=== PATIENT | female | born 1970 | race African-American/Black ===

== ENCOUNTER 2018-09-14 19:28 | Emergency (ER) | payer OTHER | END 2018-09-15 02:49 | disposition home or self-care (01) | LOC: JER 09-15 02:49 | PROC: 3E0337Z Introduction of Electrolytic and Water Balance Substance into Peripheral Vein, Percutaneous Approach (ICD-10-PCS; principal; 2018-09-14) | PROC: 3E03329 Introduction of Other Anti-infective into Peripheral Vein, Percutaneous Approach (ICD-10-PCS; 2018-09-14) | PROC: 3E033NZ Introduction of Analgesics, Hypnotics, Sedatives into Peripheral Vein, Percutaneous Approach (ICD-10-PCS; 2018-09-14) | PROC: 3E0333Z Introduction of Anti-inflammatory into Peripheral Vein, Percutaneous Approach (ICD-10-PCS; 2018-09-14) | DX: N39.0 Urinary tract infection, site not specified (principal); N83.202 Unspecified ovarian cyst, left side; D64.9 Anemia, unspecified ==

== ENCOUNTER 2020-10-22 18:47 | Emergency (ER) | payer OTHER ==
[2020-10-22 19:00] VITALS: BP 150/89; PULSE 80; TEMP 98.4; BMI 51.7
[2020-10-22] MEDS ORDERED: diazePAM 2 MG TABLET PO ONE (19:55)
[2020-10-22] MEDS ORDERED: KETOROLAC TROMETHAMINE 60 MG/2 ML VIAL IM ONE (19:55)
[2020-10-22] MEDS ORDERED: DEXAMETHASONE LIQUID 0.5 MG/5 ML PO ONE (19:55)
[2020-10-22] MEDS ORDERED: LIDOCAINE 5% TOPICAL PATCH TP ONE (19:55)
[2020-10-22] MEDS ORDERED: LIDOCAINE 5% TOPICAL PATCH ONE (19:59)
[2020-10-22] MEDS ORDERED: DEXAMETHASONE SOD PHOSPHATE 10 MG/1 ML VIAL ONE (20:00)
[2020-10-22] MEDS ORDERED: diazePAM 2 MG TABLET ONE (20:00)
[2020-10-22] MEDS ORDERED: KETOROLAC TROMETHAMINE 30 MG/1 ML VIAL ONE (20:00)
== END 2020-10-22 22:34 | disposition home or self-care (01) ==
LOC: JERFT 18:47
PROC: 3E0233Z Introduction of Anti-inflammatory into Muscle, Percutaneous Approach (ICD-10-PCS; principal; 2020-10-22)
DX: M54.5 Low back pain (principal)
CPT/HCPCS: 99284-25

== ENCOUNTER 2020-11-01 16:28 | Observation (INO) | payer OTHER ==
[2020-11-01] MEDS ORDERED: KETOROLAC TROMETHAMINE 30 MG/1 ML VIAL IM ONE (17:34)
[2020-11-01] MEDS ORDERED: diazePAM 2 MG TABLET PO ONE (17:35)
[2020-11-01] MEDS ORDERED: LIDOCAINE 5% TOPICAL PATCH TP ONE (17:35)
[2020-11-01] MEDS ORDERED: KETOROLAC TROMETHAMINE 30 MG/1 ML VIAL ONE (17:38)
[2020-11-01] MEDS ORDERED: diazePAM 2 MG TABLET ONE (17:38)
[2020-11-01] MEDS ORDERED: LIDOCAINE 5% TOPICAL PATCH ONE (17:45)
[2020-11-01] MEDS ORDERED: oxyCODONE HCL 5 MG TABLET PO ONE (18:31)
[2020-11-01] MEDS ORDERED: oxyCODONE HCL 5 MG TABLET ONE (18:35)
[2020-11-01 19:06] LABS: BASO % 0.9 % (0-2.0); EOS % 1.3 % (0-4.5); HEMATOCRIT 40.7 % (32.4-45.2); HEMOGLOBIN 13.3 GM/dL (10.7-15.3); LYMPH % 24.8 % (8-40); MCHC 32.8 g/dl (32.0-36.0); MEAN CELL VOLUME 88.5 fl (80-96); MEAN PLT VOLUME 10.7 fl (7.5-11.1); MONO % 7.9 % (3.8-10.2); NEUT % 65.1 % (42.8-82.8); PLATELET COUNT 141 10^3/uL (134-434); WHITE BLOOD COUNT 11.3 K/mm3 (4.0-10.0)
[2020-11-01 19:26] LABS: CALCIUM 8.5 mg/dL (8.5-10.1)
[2020-11-01 19:27] LABS: ALBUMIN 3.1 g/dl (3.4-5.0)
[2020-11-01 19:30] LABS: CREATININE 0.9 mg/dL (0.55-1.3)
[2020-11-01 19:31] LABS: BILIRUBIN,TOTAL 0.2 mg/dL (0.2-1)
[2020-11-01 19:32] LABS: TOT PROT 6.6 g/dl (6.4-8.2)
[2020-11-01] MEDS ORDERED: KETOROLAC TROMETHAMINE 15 MG/ML VIAL IVPUSH PRN (21:31)
[2020-11-01] MEDS ORDERED: diazePAM 5 MG TABLET PO PRN (21:31)
[2020-11-01] MEDS ORDERED: oxyCODONE HCL 5 MG TABLET PO PRN (21:45)
[2020-11-01] MEDS ORDERED: KETOROLAC TROMETHAMINE 15 MG/ML VIAL ONE (22:32)
[2020-11-01] MEDS ORDERED: methylPREDNISolone NA SUCC 40 MG/1 ML VIAL ONE (22:32)
[2020-11-01] MEDS ORDERED: POLYETHYLENE GLYCOL (HEALTHYLAX) 3350 17 GM PACKET ONE (22:32)
[2020-11-01] MEDS: methylPREDNISolone NA SUCC 40 MG/1 ML VIAL IVPUSH SCH (22:48)
[2020-11-01] MEDS: POLYETHYLENE GLYCOL (HEALTHYLAX) 3350 17 GM PACKET PO SCH (22:48)
[2020-11-02 01:29] VITALS: BMI 49.3
[2020-11-02] MEDS: oxyCODONE HCL 5 MG TABLET PO PRN ×3 (08:07→21:53)
[2020-11-02 08:32] LABS: BASO % 0.2 % (0-2.0); EOS % 0.2 % (0-4.5); HEMATOCRIT 43.3 % (32.4-45.2); HEMOGLOBIN 13.7 GM/dL (10.7-15.3); MCH 28.4 pg (25.7-33.7); MCHC 31.5 g/dl (32.0-36.0); MEAN PLT VOLUME 10.9 fl (7.5-11.1); NEUT % 87.6 % (42.8-82.8); PLATELET COUNT 145 10^3/uL (134-434); RBC 4.81 M/mm3 (3.60-5.2); RDW 16.3 % (11.6-15.6); WHITE BLOOD COUNT 10.4 K/mm3 (4.0-10.0)
[2020-11-02 09:03] LABS: CALCIUM 8.7 mg/dL (8.5-10.1)
[2020-11-02 09:04] LABS: BLOOD UREA NITROGEN 20.4 mg/dL (7-18)
[2020-11-02 09:07] LABS: CREATININE 0.8 mg/dL (0.55-1.3)
[2020-11-02] MEDS: POLYETHYLENE GLYCOL (HEALTHYLAX) 3350 17 GM PACKET PO SCH ×2 (10:28→21:56)
[2020-11-02] MEDS: methylPREDNISolone NA SUCC 40 MG/1 ML VIAL IVPUSH SCH (10:28)
[2020-11-02] MEDS: PANTOPRAZOLE 40 MG TABLET PO SCH ×2 (10:28→10:54)
[2020-11-02] MEDS: ENOXAPARIN NA (PORCINE) 40 MG/0.4 ML DISP.SYRIN SQ SCH (10:28)
[2020-11-02] MEDS: LIDOCAINE 5% TOPICAL PATCH TP SCH (10:32)
[2020-11-02 10:52] LABS: EPI CELLS 30 /uL (0-25.1); HYALINE CASTS 1 /uL (0-3.1); PH,URINE 7.5 (5.0-8.0); URINE APPEARANCE CLEAR; URINE BACTERIA 301 /uL (0-1359); URINE BILIRUBIN NEGATIVE (NEGATIVE); URINE COLOR YELLOW; URINE GLUCOSE (UA) NEGATIVE (NEGATIVE); URINE KETONE NEGATIVE (NEGATIVE); URINE LEUK ESTERASE 1+ (NEGATIVE); URINE NITRITE NEGATIVE (NEGATIVE); URINE PROTEIN NEGATIVE (NEGATIVE); URINE WBC 61 /uL (0-25.8)
[2020-11-02] MEDS ORDERED: GABAPENTIN 100 MG CAPSULE PO ONE (12:00)
[2020-11-02 12:01] LABS: YEAST NONE SEEN (NEGATIVE)
[2020-11-02] MEDS: GABAPENTIN 300 MG CAPSULE PO SCH ×2 (15:19→21:55)
[2020-11-02] MEDS: ACETAMINOPHEN 500 MG TABLET (FP) PO SCH ×2 (15:21→21:55)
[2020-11-02] MEDS ORDERED: LIDOCAINE PATCH REMOVAL MC SCH (22:00)
[2020-11-03] MEDS: GABAPENTIN 300 MG CAPSULE PO SCH ×2 (05:42→13:18)
[2020-11-03] MEDS: ACETAMINOPHEN 500 MG TABLET (FP) PO SCH ×2 (05:42→13:18)
[2020-11-03 06:50] VITALS: PULSE 75
[2020-11-03] MEDS ORDERED: PANTOPRAZOLE 40 MG TABLET PO SCH (08:00)
[2020-11-03 09:03] LABS: BASO % 0.4 % (0-2.0); EOS % 0.4 % (0-4.5); HEMOGLOBIN 13.2 GM/dL (10.7-15.3); LYMPH % 27.6 % (8-40); MCH 28.3 pg (25.7-33.7); MCHC 31.5 g/dl (32.0-36.0); MEAN PLT VOLUME 10.9 fl (7.5-11.1); MONO % 5.7 % (3.8-10.2); NEUT % 65.9 % (42.8-82.8); PLATELET COUNT 143 10^3/uL (134-434); RBC 4.67 M/mm3 (3.60-5.2); RDW 15.9 % (11.6-15.6); WHITE BLOOD COUNT 15.4 K/mm3 (4.0-10.0)
[2020-11-03 09:28] LABS: CALCIUM 8.7 mg/dL (8.5-10.1); MAGNESIUM 2.2 mg/dL (1.8-2.4)
[2020-11-03 09:31] LABS: CREATININE 0.8 mg/dL (0.55-1.3)
[2020-11-03 09:32] LABS: BILIRUBIN,TOTAL 0.3 mg/dL (0.2-1); TOT PROT 6.3 g/dl (6.4-8.2)
[2020-11-03] MEDS: POLYETHYLENE GLYCOL (HEALTHYLAX) 3350 17 GM PACKET PO SCH ×2 (10:09→10:43)
[2020-11-03] MEDS: ENOXAPARIN NA (PORCINE) 40 MG/0.4 ML DISP.SYRIN SQ SCH (10:09)
[2020-11-03] MEDS: LIDOCAINE 5% TOPICAL PATCH TP SCH (10:09)
[2020-11-03] MEDS: methylPREDNISolone NA SUCC 40 MG/1 ML VIAL IVPUSH SCH (10:09)
[2020-11-03] MEDS: oxyCODONE HCL 5 MG TABLET PO PRN (10:10)
[2020-11-03 10:34] VITALS: BP 120/81; TEMP 98.3
== END 2020-11-03 14:55 | disposition home or self-care (01) ==
LOC: JER 16:28 → JERBED 19:50 → J5S 23:00
PROVIDERS: ADMIT Internal Medicine; ATTEND Nurse Practitioner Acute Care
PROC: 3E023GC Introduction of Other Therapeutic Substance into Muscle, Percutaneous Approach (ICD-10-PCS; principal; 2020-11-01)
PROC: 3E033GC Introduction of Other Therapeutic Substance into Peripheral Vein, Percutaneous Approach (ICD-10-PCS; 2020-11-01)
PROC: 3E0333Z Introduction of Anti-inflammatory into Peripheral Vein, Percutaneous Approach (ICD-10-PCS; 2020-11-01)
DX: M54.5 Low back pain (principal); R26.2 Difficulty in walking, not elsewhere classified; K21.9 Gastro-esophageal reflux disease without esophagitis; E66.01 Morbid (severe) obesity due to excess calories; Z68.42 Body mass index [BMI] 45.0-49.9, adult; F17.210 Nicotine dependence, cigarettes, uncomplicated; Z29.9 Encounter for prophylactic measures, unspecified; D72.829 Elevated white blood cell count, unspecified; Z20.822 Contact with and (suspected) exposure to COVID-19
CPT/HCPCS: 36415; 80048; 80053; 81003; 83735; 85025; 87086; 93005; 93010; 97116-GP; 99285-25; C9803; G0378; U0003; U0005

== ENCOUNTER 2023-01-26 20:19 | Emergency (ER) | payer OTHER ==
[2023-01-26 20:29] VITALS: BP 136/75; PULSE 70; RESP 18; TEMP 98.2; BMI 51.7
== END 2023-01-26 23:25 | disposition home or self-care (01) ==
LOC: JERFT 20:19
PROC: 2W3RX1Z Immobilization of Left Lower Leg using Splint (ICD-10-PCS; principal; 2023-01-26)
DX: M79.672 Pain in left foot (principal); S82.62XA Displaced fracture of lateral malleolus of left fibula, initial encounter for closed fracture; W10.9XXA Fall (on) (from) unspecified stairs and steps, initial encounter; X50.1XXA Overexertion from prolonged static or awkward postures, initial encounter
CPT/HCPCS: 73610-TC-LT-FY; 73630-TC-LT; 99283-25

== ENCOUNTER 2023-02-01 07:25 | Day surgery (SDC) | payer OTHER ==
[2023-01-31 16:03] VITALS: BMI 51.7
[2023-02-01] MEDS ORDERED: BUPIVACAINE HCL/PF 0.5% (5 MG/ML) 30 ML VIAL IJ ONE (08:50)
[2023-02-01] MEDS ORDERED: MIDAZOLAM HCL 2 MG/2 ML SINGLE DOSE VIAL ONE (08:50)
[2023-02-01] MEDS ORDERED: BUPIVACAINE LIPOSOME/PF (EXPAREL) 266 MG/20 ML VIAL ONE (08:51)
[2023-02-01] MEDS ORDERED: ONDANSETRON 4 MG/2 ML VIAL IVPUSH PRN (09:30)
[2023-02-01] MEDS ORDERED: LACTATED RINGERS SOLUTION 1,000 ML IV SCH (09:30)
[2023-02-01 13:11] VITALS: TEMP 97.6
[2023-02-01 15:26] VITALS: BP 119/52; PULSE 69; RESP 18
== END 2023-02-01 16:05 | disposition home or self-care (01) ==
LOC: FASU 07:25
PROVIDERS: ATTEND Orthopaedic Surgery
PROC: 0QSK04Z Reposition Left Fibula with Internal Fixation Device, Open Approach (ICD-10-PCS; principal; 2023-02-01 10:02)
DX: S82.62XA Displaced fracture of lateral malleolus of left fibula, initial encounter for closed fracture (principal); X58.XXXA Exposure to other specified factors, initial encounter; Y93.9 Activity, unspecified; Y92.9 Unspecified place or not applicable
CPT/HCPCS: 27792; C1713; 73610-TC-LT-FY; 94760